=== PATIENT | male | born 1975 | race Caucasian/White ===

== ENCOUNTER 2018-02-19 16:09 | Emergency (ER) | payer BC ==
[2018-02-19] MEDS ORDERED: Sodium Chloride 0.9% 10 ML Syringe FLUSH PRN (16:47)
--- NOTE | 2018-02-19 18:46 | EDM.PDOC ---
ED HPI GENERAL MEDICAL PROBLEM - General Chief Complaint: Chest Pain Stated Complaint: CHEST PAIN/BACK PAIN Time Seen by Provider: 02/19/18 16:29 Source of Information: Reports: Patient History Limitations: Reports: No Limitations - History of Present Illness INITIAL COMMENTS - FREE TEXT/NARRATIVE: The patient presents with neck, upper back and chest pain. He has been traveling about 3,000miles over the past week. A few days ago it started with neck pain and then it went into his upper back and now into his chest. He has no shortness of breath with it. It is like a tightness. He has no fever, chills, cough, abdominal pain, nausea, vomiting, leg pain or edema. He has no history of DVT or PE. He has no history of hypertension, hypercholesterolemia or diabetes. He does smoke cigars sometimes. His brother of an HI at 59. Onset: Gradual Duration: Day(s): Location: Reports: Neck, Chest, Back Quality: Reports: Other (Tightness) Severity: Moderate Improves with: Reports: None Worsens with: Reports: None Associated Symptoms: Reports: Chest Pain. Denies: Fever/Chills, Headaches, Nausea/Vomiting, Shortness of Breath Chest Pain Score (Numeric/FACES): 7 - Related Data Allergies Allergy/AdvReac Type Severity Reaction Status Date / Time No Known Allergies Allergy Verified 02/19/18 16:24 Home Meds: Home Meds . [No Known Home Meds] 02/19/18 [History] Past Medical History - Past Health History Medical/Surgical History: Denies Medical/Surgical History Social & Family History - Tobacco Use Smoking Status *Q: Former Smoker Used Tobacco, but Quit: Yes Month/Year Tobacco Last Used: unknonw - Caffeine Use Caffeine Use: Reports: Coffee, Energy Drinks - Recreational Drug Use Recreational Drug Use: No ED ROS GENERAL - Review of Systems Review Of Systems: See Below Constitutional: Reports: No Symptoms HEENT: Reports: No Symptoms Respiratory: Reports: No Symptoms Cardiovascular: Reports: Chest Pain Endocrine: Reports: No Symptoms GI/Abdominal: Reports: No Symptoms : Reports: No Symptoms Musculoskeletal: Reports: Neck Pain, Back Pain Neurological: Reports: No Symptoms ED EXAM, GENERAL - Physical Exam Exam: See Below Exam Limited By: No Limitations General Appearance: Alert, No Apparent Distress Ears: Normal External Exam Nose: Normal Inspection Head: Atraumatic, Normocephalic Neck: Normal Inspection Respiratory/Chest: No Respiratory Distress, Lungs Clear, Normal Breath Sounds Cardiovascular: Regular Rate, Rhythm, No Edema, No Murmur GI/Abdominal: Soft, Non-Tender, No Organomegaly, No Mass Back Exam: Normal Inspection Extremities: Normal Inspection Neurological: Alert, Oriented, No Motor/Sensory Deficits EKG INTERPRETATION EKG Date: 02/19/18 Time: 16:38 Rhythm: NSR Rate (Beats/Min): 75 [place]: Normal P-Wave: Present QRS: Normal ST-T: Normal QT: Normal Course - Vital Signs Last Recorded V/S: Last Vital Signs Temp 97.3 F 02/19/18 16:21 Pulse 86 02/19/18 16:21 Resp 19 02/19/18 18:45 BP 121/82 02/19/18 18:45 Pulse Ox 95 02/19/18 18:45 - Orders/Labs/Meds Orders: Active Orders 24 hr Category Date Time Status Cardiac Monitoring [RC] . DIRECTED Care 02/19/18 16:47 Active EKG Documentation Completion [RC] ASDIRECTED Care 02/19/18 16:37 Active EKG Documentation Completion [RC] ASDIRECTED Care 02/19/18 19:00 Active Peripheral IV Care [RC] . DIRECTED Care 02/19/18 16:48 Active Chest 1V Frontal [CR] Stat Exams 02/19/18 16:48 Taken TROPONIN I [CHEM] Stat Lab 02/19/18 19:00 Ordered Sodium Chloride 0.9% [Saline Flush] Med 02/19/18 16:47 Active 10 ml FLUSH ASDIRECTED PRN Peripheral IV Insertion Adult [OM.PC] Stat Oth 02/19/18 16:47 Ordered EKG 12 Lead [EK] Stat Ther 02/19/18 16:36 Ordered EKG 12 Lead [EK] Stat Ther 02/19/18 19:00 Ordered Medication Orders Sodium Chloride (Saline Flush) 10 ml FLUSH ASDIRECTED PRN PRN Reason: Keep Vein Open Labs: Laboratory Tests 02/19/18 02/19/18 Range/Units 17:14 17:14 WBC 8.05 (4.23-9.07) K/mm3 RBC 5.32 (4.63-6.08) M/mm3 Hgb 16.4 (13.7-17.5) gm/L Hct 47.3 (40.1-51.0) % MCV 88.9 (79.0-92.2) fl MCH 30.8 (25.7-32.2) pg MCHC 34.7 (32.2-35.5) g/dl RDW Std Deviation 41.2 (35.1-43.9) fL Plt Count 186 (163-337) K/mm3 MPV 9.9 (9.4-12.3) fl Neut % (Auto) 63.2 (34.0-67.9) % Lymph % (Auto) 26.2 (21.8-53.1) % [place] % (Auto) 7.7 (5.3-12.2) % Eos % (Auto) 2.0 (0.8-7.0) Baso % (Auto) 0.5 (0.1-1.2) % Neut # (Auto) 5.09 (1.78-5.38) K/mm3 Lymph # (Auto) 2.11 (1.32-3.57) K/mm3 [place] # (Auto) 0.62 (0.30-0.82) K/mm3 Eos # (Auto) 0.16 (0.04-0.54) K/mm3 Baso # (Auto) 0.04 (0.01-0.08) K/mm3 Sodium 143 (136-145) mEq/L Potassium 4.4 (3.5-5.1) mEq/L Chloride 106 (98-107) mEq/L Carbon Dioxide 29 (21-32) mEq/L Anion Gap 12.4 (5-15) BUN 11 (7-18) mg/dL Creatinine 1.0 (0.7-1.3) mg/dL Est Cr Clr Drug Dosing 135.53 mL/min Estimated GFR (MDRD) > 60 (>60) mL/min BUN/Creatinine Ratio 11.0 L (14-18) Glucose 99 (74-106) mg/dL Calcium 8.9 (8.5-10.1) mg/dL Total Bilirubin 0.6 (0.2-1.0) mg/dL AST 26 (15-37) U/L ALT 41 (16-63) U/L Alkaline Phosphatase 53 (46-116) U/L Troponin I < 0.017 (0.00-0.056) ng/mL Total Protein 7.4 (6.4-8.2) g/dl Albumin 3.9 (3.4-5.0) g/dl Globulin 3.5 gm/dL Albumin/Globulin Ratio 1.1 (1-2) Meds: Medications Generic Name Dose Route Start Last Admin Trade Name Moe PRN Reason Stop Dose Admin Sodium Chloride 10 ml 02/19/18 16:47 Saline Flush FLUSH ASDIRECTED PRN Keep Vein Open - Re-Assessments/Exams Free Text/Narrative Re-Assessment/Exam: 02/19/18 19:08 I ordered an EKG, CXR, and labs. His EKG shows a NSR with no acute changes. His CXR looks good. His CBC and CMP look good. His troponin is negative. He feels better. I will get a repeat EKG and repeat troponin. 02/19/18 19:23 I was very delayed getting into the room. It was a couple hours before I got into the room. His repeat EKG shows no acute changes. I will call him with the repeat troponin. Departure - Departure Time of Disposition: 19:25 Disposition: Home, Self-Care 01 Condition: Good Clinical Impression: Atypical chest pain Thoracic back pain Qualifiers: Chronicity: acute Back pain laterality: bilateral Qualified Code(s): M54.6 - Pain in thoracic spine Referrals: Lucía Rogers PA-C [Primary Care Provider] - 1 Week Forms: ED Department Discharge Additional Instructions: Take motrin or tylenol for your neck and back pain. Follow up with Lucía Rogers in 1 week. Please return if you are worse. - My Orders Last 24 Hours: My Active Orders 02/19/18 16:36 EKG 12 Lead [EK] Stat 02/19/18 16:37 EKG Documentation Completion [RC] ASDIRECTED 02/19/18 16:47 Cardiac Monitoring [RC] . DIRECTED Sodium Chloride 0.9% [Saline Flush] 10 ml FLUSH ASDIRECTED PRN Peripheral IV Insertion Adult [OM.PC] Stat 02/19/18 16:48 Peripheral IV Care [RC] . DIRECTED Chest 1V Frontal [CR] Stat 02/19/18 19:00 EKG Documentation Completion [RC] ASDIRECTED TROPONIN I [CHEM] Stat EKG 12 Lead [EK] Stat - Assessment/Plan Last 24 Hours: My Active Orders 02/19/18 16:36 EKG 12 Lead [EK] Stat 02/19/18 16:37 EKG Documentation Completion [RC] ASDIRECTED 02/19/18 16:47 Cardiac Monitoring [RC] . DIRECTED Sodium Chloride 0.9% [Saline Flush] 10 ml FLUSH ASDIRECTED PRN Peripheral IV Insertion Adult [OM.PC] Stat 02/19/18 16:48 Peripheral IV Care [RC] . DIRECTED Chest 1V Frontal [CR] Stat 02/19/18 19:00 EKG Documentation Completion [RC] ASDIRECTED TROPONIN I [CHEM] Stat EKG 12 Lead [EK] Stat
[2018-02-19 19:10] VITALS: BP 121/82
--- NOTE | 2018-02-20 09:43 | CR ---
Chest: Portable view of the chest was obtained. Comparison: Prior chest x-ray of 11/13/10. Heart size and mediastinum are within normal limits. Lungs are clear. Bony structures are grossly intact. Impression: 1. Nothing acute is appreciated on portable chest x-ray. Diagnostic code #1
== END 2018-02-19 19:40 | disposition home or self-care (01) ==
LOC: JD.ED 16:09
DX: M54.6 Pain in thoracic spine (principal); R07.89 Other chest pain; Z87.891 Personal history of nicotine dependence
CPT/HCPCS: 36415; 71045; 71045-26; 80053; 84484; 85025; 93005; 93010; 99284-25; 99285-25

== ENCOUNTER 2020-01-30 22:33 | Emergency (ER) | payer BC, OTHER ==
[2020-01-30] MEDS ORDERED: LORazepam 1 MG Tab PO ONE (23:31)
--- NOTE | 2020-01-30 23:58 | EDM.PDOC ---
ED HPI GENERAL MEDICAL PROBLEM - General Chief Complaint: Chest Pain Stated Complaint: CHEST TIGHTNESS/PRESSURE BACK OF HEAD/SHAKING Time Seen by Provider: 01/30/20 23:10 Source of Information: Reports: Patient History Limitations: Reports: No Limitations - History of Present Illness INITIAL COMMENTS - FREE TEXT/NARRATIVE: This is a 44-year-old male. He says he has problems with anxiety and over the last couple of weeks it is gotten markedly worse due to the [place] problems with protesters in writing and COVID. He does not see anyone for his anxiety. He does not take any medications for his anxiety. Previously he states he is able to control it but not over the last couple of weeks. When he starts getting anxious he starts getting really tight in the chest and tight in the neck and it runs up into his head and he has this pressure and tightness in his chest. He is not short of breath the tightness does not go anywhere. He is does not have any sweating with it. It does not go into the jaw. He comes to the ER because of this tightness. He believes it is anxiety that he can is not able to control. Recent fever chills colds or cough. Treatments FIELD SERVICE REPRESENTATIVE: Reports: Acetaminophen Other Treatments FIELD SERVICE REPRESENTATIVE: Aprox 2 hrs FIELD SERVICE REPRESENTATIVE Upper Chest Pain Score (Numeric/FACES): 1 Bilateral Lower Posterior Headache Pain Score (Numeric/FACES): 1 - Related Data Allergies Allergy/AdvReac Type Severity Reaction Status Date / Time No Known Allergies Allergy Verified 01/30/20 23:17 Home Meds: Home Meds hydrOXYzine HCL [Atarax] 25 mg PO Q6H PRN #20 tab 01/31/20 [Rx] Past Medical History - Past Health History Medical/Surgical History: Denies Medical/Surgical History Psychiatric History: Reports: Anxiety - Past Surgical History Cardiovascular Surgical History: Reports: Varicose Musculoskeletal Surgical History: Reports: Ganglion Cyst Social & Family History - Tobacco Use Smoking Status *Q: Current Every Day Smoker Years of Tobacco use: 26 Packs/Tins Daily: 2 - Caffeine Use Caffeine Use: Reports: Coffee, Energy Drinks, Soda, Tea - Recreational Drug Use Recreational Drug Use: No ED ROS GENERAL - Review of Systems Review Of Systems: See Below Constitutional: Denies: Fever, Chills HEENT: Reports: No Symptoms Respiratory: Reports: No Symptoms Cardiovascular: Reports: Other (Chest tightness) Endocrine: Reports: No Symptoms GI/Abdominal: Reports: No Symptoms : Reports: No Symptoms Musculoskeletal: Reports: Other (Neck tightness) Skin: Reports: No Symptoms Neurological: Reports: No Symptoms Psychiatric: Reports: Anxiety ED EXAM, GENERAL - Physical Exam Exam: See Below Exam Limited By: No Limitations General Appearance: Alert, WD/WN, No Apparent Distress Eye Exam: Bilateral Eye: Normal Inspection Ears: Normal External Exam Nose: Normal Inspection Throat/Mouth: Normal Inspection, Normal Lips, Normal Voice, No Airway Compromise Head: Normocephalic Neck: Supple, Other (Soreness of the paraspinal muscles but he does have good range of motion of his neck) Respiratory/Chest: No Respiratory Distress, Lungs Clear, Normal Breath Sounds Cardiovascular: Regular Rate, Rhythm, No Murmur, Other (No chest tenderness on palpation) GI/Abdominal: Soft Back Exam: Full Range of Motion Extremities: Normal Inspection, Normal Range of Motion Neurological: Alert, Oriented Psychiatric: Normal Affect, Normal Mood, Other (He does not appear to be anxious presently) Skin Exam: Warm, Dry EKG INTERPRETATION EKG Date: 01/30/20 Time: 23:15 EKG Interpretation Comments: EKG shows normal sinus rhythm rate of 89. There is no acute ST or T wave changes. There is no ischemia noted. There is no history of previous PR. He does have a poor R wave progression in the anterior leads. Course - Vital Signs Last Recorded V/S: Last Vital Signs Temp 97.5 F 01/30/20 23:12 Pulse 89 01/30/20 23:12 Resp 16 01/30/20 23:12 BP 155/98 H 01/30/20 23:12 Pulse Ox 94 L 01/30/20 23:12 - Orders/Labs/Meds Orders: Active Orders 24 hr Category Date Time Status EKG 12 Lead [EKG Documentation Completion] [RC] STAT Care 01/30/20 23:37 Active CBC WITH AUTO DIFF [HEME] Stat Lab 01/30/20 23:44 Results Labs: Laboratory Tests 01/30/20 01/30/20 Range/Units 23:44 23:44 WBC 11.59 H (4.23-9.07) K/mm3 RBC 5.41 (4.63-6.08) M/mm3 Hgb 17.0 (13.7-17.5) gm/dl Hct 48.9 (40.1-51.0) % MCV 90.4 (79.0-92.2) fl MCH 31.4 (25.7-32.2) pg MCHC 34.8 (32.2-35.5) g/dl RDW Std Deviation 43.0 (35.1-43.9) fL Plt Count 184 (163-337) K/mm3 MPV 10.0 (9.4-12.3) fl Neut % (Auto) 65.3 (34.0-67.9) % Lymph % (Auto) 21.0 L (21.8-53.1) % [place] % (Auto) 9.4 (5.3-12.2) % Eos % (Auto) 3.4 (0.8-7.0) Baso % (Auto) 0.4 (0.1-1.2) % Neut # (Auto) 7.57 H (1.78-5.38) K/mm3 Lymph # (Auto) 2.43 (1.32-3.57) K/mm3 [place] # (Auto) 1.09 H (0.30-0.82) K/mm3 Eos # (Auto) 0.39 (0.04-0.54) K/mm3 Baso # (Auto) 0.05 (0.01-0.08) K/mm3 Sodium 140 (136-145) mEq/L Potassium 3.7 (3.5-5.1) mEq/L Chloride 103 (98-107) mEq/L Carbon Dioxide 26 (21-32) mEq/L Anion Gap 14.7 (5-15) BUN 21 H (7-18) mg/dL Creatinine 1.1 (0.7-1.3) mg/dL Est Cr Clr Drug Dosing 120.67 mL/min Estimated GFR (MDRD) > 60 (>60) mL/min BUN/Creatinine Ratio 19.1 H (14-18) Glucose 119 H (74-106) mg/dL Calcium 9.0 (8.5-10.1) mg/dL Total Bilirubin 0.6 (0.2-1.0) mg/dL AST 32 (15-37) U/L ALT 56 (16-63) U/L Alkaline Phosphatase 54 (46-116) U/L Troponin I < 0.017 (0.00-0.056) ng/mL Total Protein 7.7 (6.4-8.2) g/dl Albumin 3.9 (3.4-5.0) g/dl Globulin 3.8 gm/dL Albumin/Globulin Ratio 1.0 (1-2) Meds: Medications Discontinued Medications Generic Name Dose Route Start Last Admin Trade Name Freq PRN Reason Stop Dose Admin Lorazepam 2 mg 01/30/20 23:31 01/30/20 23:57 Ativan PO 01/30/20 23:32 2 mg ONETIME ONE Administration - Re-Assessments/Exams Free Text/Narrative Re-Assessment/Exam: 01/31/20 00:36 The patient is feeling better the chest tightness has essentially resolved he still has some mild tightness in his neck but overall he is feeling better. I spoke to him regarding his test results and his normal cardiac enzymes and an EKG. I am going to put him on some hydroxyzine to help with his anxiety and g min him a PCP he can follow-up with. I advised him not to take the hydroxyzine and drive since they can make him sleepy. Departure - Departure Time of Disposition: 00:37 Disposition: Home, Self-Care 01 Condition: Good Clinical Impression: Atypical chest pain, Anxiety reaction Prescriptions: hydrOXYzine HCL [Atarax] 25 mg PO Q6H PRN #20 tab PRN Reason: Anxiety Instructions: Living With Anxiety Referrals: Ginger Casillas PA-C [Physician Entry Level Truck Driver] - Forms: ED Department Discharge Additional Instructions: Take the hydroxyzine every 6 hours as needed for the anxiety, if it does not seem to help then you might need something little stronger and you would need to follow-up with the primary care provider, since hydroxyzine can make you sleepy do not drive with it, return to the ER if needed Sepsis Event Note (ED) - Evaluation Sepsis Screening Result: No Definite Risk - Focused Exam Vital Signs: Vital Signs Temp Pulse Resp BP Pulse Ox 01/30/20 23:12 97.5 F 89 16 155/98 H 94 L - My Orders Last 24 Hours: My Active Orders 01/30/20 23:37 EKG 12 Lead [EKG Documentation Completion] [RC] STAT 01/30/20 23:44 CBC WITH AUTO DIFF [HEME] Stat - Assessment/Plan Last 24 Hours: My Active Orders 01/30/20 23:37 EKG 12 Lead [EKG Documentation Completion] [RC] STAT 01/30/20 23:44 CBC WITH AUTO DIFF [HEME] Stat
[2020-01-31 00:56] VITALS: BP 121/80; PULSE 90
== END 2020-01-31 00:57 | disposition home or self-care (01) ==
LOC: JD.ED 22:33
DX: F41.1 Generalized anxiety disorder (principal); F17.210 Nicotine dependence, cigarettes, uncomplicated
CPT/HCPCS: 36415; 80053; 84484; 85025; 93005; 99284; A9270

== ENCOUNTER 2021-07-11 23:16 | Emergency (ER) | payer OTHER ==
[2021-07-11 23:32] VITALS: PULSE 85
--- NOTE | 2021-07-12 00:13 | EDM.PDOC ---
ED HPI GENERAL MEDICAL PROBLEM - General Chief Complaint: Chest Pain Stated Complaint: CHEST TIGHTNESS/ STOMACH PAIN Time Seen by Provider: 07/12/21 00:02 - History of Present Illness INITIAL COMMENTS - FREE TEXT/NARRATIVE: 46-year-old male presents the emergency room with chest pain. This pain started couple hours ago. He was watching TV when he had sudden sharp pain lower portion of his chest this lasted 30 seconds or so and then subsided leaving him some chest like pressure. This chest pressure has not subsided on its own. Patient has no prior history of coronary artery disease however he had a stress test done about 5 or 6 years ago. He had a brother that in his mid 50s of massive heart attack. Patient has a risk factor significant for smoking and family history of smoking. The patient seldom uses alcohol denies any illicit drugs. He is not treated for hypertension or hyperlipidemia does not have a regular physician at this time. Mid-Sternal Chest Pain Score (Numeric/FACES): 2 - Related Data Allergies Allergy/AdvReac Type Severity Reaction Status Date / Time No Known Allergies Allergy Verified 07/11/21 23:29 Home Meds: Home Meds . [No Known Home Meds] 07/11/21 [History] Past Medical History - Past Health History Medical/Surgical History: Denies Medical/Surgical History Psychiatric History: Reports: Anxiety - Past Surgical History Cardiovascular Surgical History: Reports: Varicose Musculoskeletal Surgical History: Reports: Ganglion Cyst Social & Family History - Tobacco Use Tobacco Use Status *Q: Current Every Day Tobacco User Years of Tobacco use: 28 Packs/Tins Daily: 8 - Caffeine Use Caffeine Use: Reports: Coffee, Energy Drinks, Soda, Tea - Recreational Drug Use Recreational Drug Use: No ED ROS GENERAL - Review of Systems Review Of Systems: See Below Constitutional: Reports: No Symptoms HEENT: Reports: No Symptoms Respiratory: Reports: No Symptoms Cardiovascular: Reports: Chest Pain Endocrine: Reports: No Symptoms GI/Abdominal: Reports: No Symptoms : Reports: Other (He had some right lower arm discomfort that went away on its own felt like a muscle cramp that was brief before this episode started) Musculoskeletal: Reports: No Symptoms Skin: Reports: No Symptoms Neurological: Reports: No Symptoms ED EXAM, GENERAL - Physical Exam Exam: See Below Exam Limited By: No Limitations General Appearance: Alert, No Apparent Distress Head: Atraumatic, Normocephalic Neck: Normal Inspection, Supple, Non-Tender, Full Range of Motion Respiratory/Chest: No Respiratory Distress, Lungs Clear, Normal Breath Sounds, No Accessory Muscle Use, Chest Non-Tender Cardiovascular: Normal Peripheral Pulses, Regular Rate, Rhythm, No Edema, No Gallop, No JVD, No Murmur, No Rub GI/Abdominal: Normal Bowel Sounds, Soft, Non-Tender, No Organomegaly, No Distention, No Abnormal Bruit, No Mass Back Exam: Normal Inspection. No: CVA Tenderness (L), CVA Tenderness (R) Extremities: Normal Inspection, No Pedal Edema Neurological: Alert, Oriented, Normal Cognition #1 Interpretation EKG Date: 07/11/21 Rhythm: NSR Rate (Beats/Min): 83 [place]: Other (Borderline rightward axis) P-Wave: Present QRS: Normal ST-T: Normal QT: Normal Comparison: No Change (No significant change from 01/30/2020) EKG Interpretation Comments: Borderline normal EKG Course - Vital Signs Last Recorded V/S: Last Vital Signs Temp 36.3 C 07/11/21 23:30 Pulse 85 07/11/21 23:30 Resp 16 07/11/21 23:30 BP 139/85 07/12/21 00:36 Pulse Ox 94 L 07/11/21 23:30 - Orders/Labs/Meds Orders: Active Orders 24 hr Category Date Time Status Chest 1V Frontal [CR] Stat Exams 07/11/21 23:54 Taken Sodium Chloride 0.9% [Normal Saline] 1,000 ml Med 07/12/21 00:30 Active IV ASDIRECTED Medication Orders Sodium Chloride (Normal Saline) 1,000 mls @ 50 mls/hr IV ASDIRECTED KENDRICK Last Admin: 07/12/21 00:37 Dose: 50 mls/hr Documented by: JA Labs: Laboratory Tests 07/11/21 07/11/21 07/11/21 Range/Units 23:55 23:55 23:55 WBC 10.28 H (4.23-9.07) K/mm3 RBC 5.48 (4.63-6.08) M/mm3 Hgb 16.9 (13.7-17.5) gm/dl Hct 50.1 (40.1-51.0) % MCV 91.4 (79.0-92.2) fl MCH 30.8 (25.7-32.2) pg MCHC 33.7 (32.2-35.5) g/dl RDW Std Deviation 43.2 (35.1-43.9) fL Plt Count 181 (163-337) K/mm3 MPV 9.7 (9.4-12.3) fl Neutrophils % (Manual) 65 H (40-60) % Band Neutrophils % 0 (0-10) % Lymphocytes % (Manual) 26 (20-40) % Atypical Lymphs % 0 % Monocytes % (Manual) 7 (2-10) % Eosinophils % (Manual) 2 (0.8-7.0) % Basophils % (Manual) 0 L (0.2-1.2) Platelet Estimate Adequate Plt Morphology Comment Normal RBC Morph Comment Normal PT 10.6 (9.7-12.0) SECONDS INR 0.95 APTT 28.3 (21.7-31.4) SECONDS Sodium 140 (136-145) mEq/L Potassium 4.0 (3.5-5.1) mEq/L Chloride 105 (98-107) mEq/L Carbon Dioxide 25 (21-32) mEq/L Anion Gap 14.0 (5-15) BUN 24 H (7-18) mg/dL Creatinine 1.1 (0.7-1.3) mg/dL Est Cr Clr Drug Dosing 118.13 mL/min Estimated GFR (MDRD) > 60 (>60) mL/min BUN/Creatinine Ratio 21.8 H (14-18) Glucose 125 H (70-99) mg/dL Calcium 8.7 (8.5-10.1) mg/dL Total Bilirubin 0.3 (0.2-1.0) mg/dL AST 35 (15-37) U/L ALT 62 (16-63) U/L Alkaline Phosphatase 50 (46-116) U/L Troponin I < 0.017 (0.00-0.056) ng/mL Total Protein 7.6 (6.4-8.2) g/dl Albumin 3.9 (3.4-5.0) g/dl Globulin 3.7 gm/dL Albumin/Globulin Ratio 1.1 (1-2) 07/12/21 Range/Units 02:09 WBC (4.23-9.07) K/mm3 RBC (4.63-6.08) M/mm3 Hgb (13.7-17.5) gm/dl Hct (40.1-51.0) % MCV (79.0-92.2) fl MCH (25.7-32.2) pg MCHC (32.2-35.5) g/dl RDW Std Deviation (35.1-43.9) fL Plt Count (163-337) K/mm3 MPV (9.4-12.3) fl Neutrophils % (Manual) (40-60) % Band Neutrophils % (0-10) % Lymphocytes % (Manual) (20-40) % Atypical Lymphs % % Monocytes % (Manual) (2-10) % Eosinophils % (Manual) (0.8-7.0) % Basophils % (Manual) (0.2-1.2) Platelet Estimate Plt Morphology Comment RBC Morph Comment PT (9.7-12.0) SECONDS INR APTT (21.7-31.4) SECONDS Sodium (136-145) mEq/L Potassium (3.5-5.1) mEq/L Chloride (98-107) mEq/L Carbon Dioxide (21-32) mEq/L Anion Gap (5-15) BUN (7-18) mg/dL Creatinine (0.7-1.3) mg/dL Est Cr Clr Drug Dosing mL/min Estimated GFR (MDRD) (>60) mL/min BUN/Creatinine Ratio (14-18) Glucose (70-99) mg/dL Calcium (8.5-10.1) mg/dL Total Bilirubin (0.2-1.0) mg/dL AST (15-37) U/L ALT (16-63) U/L Alkaline Phosphatase (46-116) U/L Troponin I < 0.017 (0.00-0.056) ng/mL Total Protein (6.4-8.2) g/dl Albumin (3.4-5.0) g/dl Globulin gm/dL Albumin/Globulin Ratio (1-2) Meds: Medications Generic Name Dose Route Start Last Admin Trade Name Freq PRN Reason Stop Dose Admin Sodium Chloride 1,000 mls @ 50 mls/hr 07/12/21 00:30 07/12/21 00:37 Normal Saline IV 50 mls/hr ASDIRECTED KENDRICK Administration Discontinued Medications Generic Name Dose Route Start Last Admin Trade Name Moe PRN Reason Stop Dose Admin Aspirin 324 mg 07/12/21 00:27 07/12/21 00:35 Aspirin 81 Mg Tab.Chew PO 07/12/21 00:28 324 mg ONETIME ONE Administration Nitroglycerin 0.4 mg 07/12/21 00:27 07/12/21 00:36 Nitroglycerin 0.4 Mg Tab.Sl SL 07/12/21 00:28 0.4 mg ONETIME ONE Administration - Re-Assessments/Exams Free Text/Narrative Re-Assessment/Exam: 07/12/21 01:14 Patient had residual tightness improve after the nitro. Labs are unrevealing at this point we will check a second troponin 2 1/2 hours after the first. X-ray shows no acute cardiopulmonary changes small hiatal hernia present 07/12/21 03:14 Second troponin is negative. We will reapply the heart score he has a score of three one-point for moderately suspicious history another point for his age and another point for risk factors namely family history. We discussed the risk of this in the 1.7% chance of major acute coronary event in the next 6 weeks. Offered hospital observation versus home discharge and he would like to go home. He agrees to follow-up with his regular healthcare provider and discuss the pros and cons of cardiac stress testing. I have recommended he quit smoking of also recommended he starts a enteric-coated baby aspirin one daily. Departure - Departure Time of Disposition: 03:16 Disposition: Home, Self-Care 01 Clinical Impression: Chest pain - Discharge Information Referrals: PCP,None [Primary Care Provider] - Forms: ED Department Discharge Additional Instructions: Return to the emergency room with any questions problems or worsening symptoms. Follow-up with your regular healthcare provider this week if you do not have one call the hospital clinic at [phone]. Discuss with the healthcare provider the pros and cons of getting it heart stress test done. Start 81 mg aspirin enteric-coated. This is the baby aspirin with the stomach coating on it. Take one daily. Please quit smoking. Sepsis Event Note (ED) - Evaluation Sepsis Screening Result: No Definite Risk - Focused Exam Vital Signs: Vital Signs Temp Pulse Resp BP BP Pulse Ox 07/12/21 00:36 139/85 07/11/21 23:30 36.3 C 85 16 155/95 H 94 L - My Orders Last 24 Hours: My Active Orders 07/11/21 23:54 Chest 1V Frontal [CR] Stat 07/12/21 00:30 Sodium Chloride 0.9% [Normal Saline] 1,000 ml IV ASDIRECTED - Assessment/Plan Last 24 Hours: My Active Orders 07/11/21 23:54 Chest 1V Frontal [CR] Stat 07/12/21 00:30 Sodium Chloride 0.9% [Normal Saline] 1,000 ml IV ASDIRECTED
[2021-07-12] MEDS ORDERED: Aspirin 81 MG Tab.Chew PO ONE (00:27)
[2021-07-12] MEDS ORDERED: Nitroglycerin 0.4 MG Tab.SL SL ONE (00:27)
[2021-07-12] MEDS ORDERED: Sodium Chloride 0.9% 1,000 ML IV SCH (00:30)
[2021-07-12 00:36] VITALS: BP 139/85
--- NOTE | 2021-07-12 10:21 | CR ---
EXAM: XR CHEST 1 VIEW LOCATION: [facility] [employer] DATE/TIME: 07/11/2021 11:54 PM INDICATION: Chest pain. COMPARISON: None. 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 Chest otherwise negative. SIGNED BY: Dawson Barba MD 07/12/2021 1:40 AM [facility]
== END 2021-07-12 03:26 | disposition home or self-care (01) ==
LOC: JD.ED 23:16
DX: R07.2 Precordial pain (principal); Z72.0 Tobacco use
CPT/HCPCS: 36415; 71045; 80053; 84484; 85007; 85027; 85610; 85730; 93005; 99285; A9270; J7030

== ENCOUNTER 2022-03-29 16:26 | Emergency (ER) | payer OTHER ==
[2022-03-29] MEDS ORDERED: Aspirin 81 MG Tab.Chew PO ONE (16:51)
[2022-03-29] MEDS ORDERED: Sodium Chloride 0.9% 10 ML Syringe FLUSH PRN (16:51)
[2022-03-29] MEDS: Nitroglycerin 0.4 MG Tab.SL SL PRN ×2 (17:20→17:35)
[2022-03-29 17:36] VITALS: BP 132/85
[2022-03-29] MEDS ORDERED: LORazepam 2 MG/ML SDV IVPUSH ONE (18:01)
[2022-03-29 18:30] VITALS: PULSE 77
== END 2022-03-29 19:39 | disposition home or self-care (01) ==
LOC: JD.ED 16:26
DX: R07.89 Other chest pain (principal); F17.210 Nicotine dependence, cigarettes, uncomplicated; Z86.16 Personal history of COVID-19
CPT/HCPCS: 36415; 71045; 80053; 83735; 83880; 84484; 85025; 85379; 85610; 93005; 96374; 99285; A9270; J2060; 93010; 99284